=== PATIENT | female | born 1995 | race Caucasian/White ===

== ENCOUNTER 2018-12-28 17:50 | Emergency (ER) | payer OTHER ==
[~2018-12-28] VITALS: Ht 154.9 cm; Wt 65.0 kg
[2018-12-28 18:17] VITALS: Ht 154.9 cm; Wt 65.0 kg
[2018-12-28] MEDS ORDERED: HUMULIN R100 U/ML SC (18:20)
[2018-12-28] MEDS ORDERED: HUMULIN N100 U/ML SC (18:21)
[2018-12-28 18:50] LABS: BASOPHILS 0.2 % (0-2); EOSINOPHILS 0.9 % (0-7); HEMATOCRIT 40.9 % (36.0-48.0); HEMOGLOBIN 14.5 g/dL (12-16); IMMATURE GRANULOCYTES 0.3 % (0-5); LYMPHOCYTES 24.8 % (15-50); MCH 29.2 pg (26.0-34.0); MCHC 35.5 g/dL (31.0-37.0); MCV 82.3 fL (80.0-100.0); MEAN PLATELET VOLUME 11.7 fL (7.4-10.4); MONOCYTES 6.4 % (2-11); NEUTROPHILS 67.4 % (40-80); PLATELET COUNT 222 10x3/uL (130-400); RBC 4.97 10x6/uL (4.00-5.40); RDW 12.5 % (11.5-14.5); WBC 12.7 10x3/uL (4.8-10.8)
[2018-12-28 18:57] LABS: APPEARANCE CLEAR (CLEAR); BILIRUBIN NEGATIVE (NEGATIVE); COLOR STRAW (YELLOW); GLUCOSE 1000 mg/dL (NEGATIVE); KETONE NEGATIVE (NEGATIVE); NITRITE NEGATIVE (NEGATIVE); PROTEIN NEGATIVE (NEGATIVE); UROBILINOGEN NORMAL (NORMAL)
[2018-12-28 18:58] LABS: BACTERIA FEW /hpf (NONE SEEN); EPITHELIAL CELLS 0-5 /hpf (0-5); RED CELLS - URINE RARE /hpf (0-5); WHITE CELLS - URINE 0-5 /hpf (0-5)
[2018-12-28 18:59] LABS: HCG URINE NEGATIVE (NEGATIVE)
[2018-12-28 19:16] LABS: ALKALINE PHOSPHATASE 113 U/L (46-116); ALT (SGPT) 14 U/L (10-68); AMYLASE - SERUM 31 U/L (25-115); BILIRUBIN - TOTAL 0.36 mg/dL (0.2-1.3); CALCIUM 9.2 mg/dL (8.5-10.1); CHLORIDE - SERUM 96 mmol/L (98-107); CREATININE - SERUM 1.1 mg/dL (0.6-1.3); LIPASE 206 U/L (73-393); POTASSIUM - SERUM 3.9 mmol/L (3.5-5.1); SODIUM 132 mmol/L (136-145); UREA NITROGEN 11 mg/dL (7-18); eGFR NON AFRICAN AMERICAN 65 mL/min (90-120)
[2018-12-28 19:19] LABS: CALC OSMOLALITY 284 mosm/kg (275-300); GLUCOSE 480 mg/dL (74-106); TROPONIN-I < 0.017 ng/mL (0.000-0.060)
[2018-12-28 19:37] LABS: KETONE - SERUM SMALL mg/dL (NEGATIVE)
[2018-12-28 19:38] LABS: HCG SERUM NEGATIVE (NEGATIVE)
[2018-12-28 19:39] LABS: MAGNESIUM - SERUM 1.7 mg/dL (1.8-2.4)
[2018-12-28] MEDS ORDERED: VIBRAMYCIN 100100 MG PO (20:26)
[2018-12-28] MEDS ORDERED: FLAGYL500 MG PO (20:26)
[2018-12-28 22:04] VITALS: BP 94/51
== END 2018-12-28 22:05 | disposition home or self-care (01) ==
LOC: D.ER 17:50
PROVIDERS: Emergency Medicine; Family Medicine
DX: R10.32 Left lower quadrant pain (principal); E83.42 Hypomagnesemia; N89.8 Other specified noninflammatory disorders of vagina

== ENCOUNTER 2019-11-18 12:10 | Emergency (ER) | payer MEDICAID ==
[~2019-11-18] VITALS: Ht 154.9 cm; Wt 75.9 kg
[~2019-11-18 12:10] MED LIST: FLAGYL500 MG PO; HUMULIN N100 U/ML SC; HUMULIN R100 U/ML SC; VIBRAMYCIN 100100 MG PO
[2019-11-18 12:19] VITALS: Ht 154.9 cm; Wt 75.9 kg
[2019-11-18 12:52] LABS: BASOPHILS 0.1 % (0-2); EOSINOPHILS 0.4 % (0-7); HEMATOCRIT 39.7 % (36.0-48.0); HEMOGLOBIN 13.7 g/dL (12-16); IMMATURE GRANULOCYTES 0.4 % (0-5); LYMPHOCYTES 13.4 % (15-50); MCHC 34.5 g/dL (31.0-37.0); MCV 83.9 fL (80.0-100.0); MEAN PLATELET VOLUME 10.8 fL (7.4-10.4); MONOCYTES 4.7 % (2-11); PLATELET COUNT 203 10x3/uL (130-400); RBC 4.73 10x6/uL (4.00-5.40); RDW 13.3 % (11.5-14.5); WBC 11.5 10x3/uL (4.8-10.8)
[2019-11-18 12:59] LABS: BILIRUBIN NEGATIVE (NEGATIVE); GLUCOSE 1000 mg/dL (NEGATIVE); KETONE LARGE mg/dL (NEGATIVE); NITRITE NEGATIVE (NEGATIVE); SPECIFIC GRAVITY 1.015 (1.005-1.020); UROBILINOGEN NORMAL (NORMAL)
[2019-11-18 13:00] LABS: BACTERIA MODERATE /hpf (NEGATIVE); CALC OSMOLALITY 274 mosm/kg (275-300); CALCIUM 9.6 mg/dL (8.5-10.1); CARBON DIOXIDE 23.7 mmol/L (21.0-32.0); CHLORIDE - SERUM 101 mmol/L (98-107); CREATININE - SERUM 0.8 mg/dL (0.6-1.3); POTASSIUM - SERUM 3.6 mmol/L (3.5-5.1); RED CELLS - URINE RARE /hpf (0-5); SODIUM 134 mmol/L (136-145); UREA NITROGEN 8 mg/dL (7-18); eGFR NON AFRICAN AMERICAN > 90 mL/min (90-120)
[2019-11-18 13:02] LABS: GLUCOSE 260 mg/dL (74-106)
[2019-11-18 13:04] LABS: ALBUMIN 2.9 g/dL (3.4-5.0); ALKALINE PHOSPHATASE 79 U/L (30-120); ALT (SGPT) 16 U/L (10-68); BILIRUBIN - TOTAL 0.37 mg/dL (0.2-1.3)
[2019-11-18 13:08] LABS: HCG SERUM POSITIVE (NEGATIVE)
[2019-11-18] MEDS ORDERED: MACROBID100 MG PO (14:21)
[2019-11-18] MEDS ORDERED: KEFLEX500 MG PO (14:21)
[2019-11-18 15:00] VITALS: BP 104/56
== END 2019-11-18 15:00 | disposition home or self-care (01) ==
LOC: D.ER 12:10
PROVIDERS: Family Medicine
DX: O24.312 Unspecified pre-existing diabetes mellitus in pregnancy, second trimester (principal); O23.42 Unspecified infection of urinary tract in pregnancy, second trimester; E11.9 Type 2 diabetes mellitus without complications; Z3A.18 18 weeks gestation of pregnancy; Z79.4 Long term (current) use of insulin; R10.9 Unspecified abdominal pain